=== PATIENT | male | born 1940 | race Caucasian/White ===

== ENCOUNTER 2017-07-24 18:23 | Emergency (ER) | payer OTHER, MEDICARE ==
[~2017-07-24] VITALS: Ht 172.7 cm; Wt 100.9 kg
[~2017-07-24 18:23] MED LIST: ADV250/50; CLORTHALIDONE PO; COMINH INH; CORE25 PO; FENOFIBRATE130 MG PO; GLU850 PO; MEV20 PO; NOR10 PO; NOVOLIN 70/30; PRI20 PO; ZES5 PO
[2017-07-24] MEDS ORDERED: ADV250/50 (18:42)
[2017-07-24] MEDS ORDERED: ASPIR 8181 MG PO (18:43)
[2017-07-24] MEDS ORDERED: CALCIUM D (18:44)
[2017-07-24] MEDS ORDERED: GLUCOSAMINE & C1 CA3 PO (18:45)
[2017-07-24] MEDS ORDERED: ZESTRIL5 MG PO (18:46)
[2017-07-24] MEDS ORDERED: LEVEMIR FLEX100 U/M1 (18:46)
[2017-07-24] MEDS ORDERED: NOVOFINE 321 EACH (18:48)
[2017-07-24] MEDS ORDERED: NOVOLIN 70/3010 ML (18:49)
[2017-07-24] MEDS ORDERED: GOOD SENSE OMEP20 MG PO (18:49)
[2017-07-24] MEDS ORDERED: PREDNISONE1 MG PO (18:50)
[2017-07-24] MEDS ORDERED: PROAIR RES117 MCG/Ac IH (18:51)
[2017-07-24 19:03] LABS: BASOPHIL % 0.3 % (0-2); PLATELET COUNT 171 x10^3mcL (130-400); RED CELL DISTRIBUTION WIDTH 13.8 % (11.5-14.5)
[2017-07-24 19:08] LABS: CALCIUM 9.3 mg/dL (8.5-10.1); CARBON DIOXIDE 27.5 mmol/L (21-32); CHLORIDE SERUM 101 mmol/L (98-107); CREATININE SERUM 1.5 mg/dL (0.7-1.3); GLUCOSE SERUM 221 mg/dL (74-106); POTASSIUM SERUM 3.9 mmol/L (3.5-5.1); SODIUM SERUM 138 mmol/L (136-145)
[2017-07-24 19:13] LABS: ALBUMIN 3.6 g/dL (3.4-5.0); ALKALINE PHOSPHATASE 57 U/L (46-116); ALT/SGPT 36 U/L (16-63); AST/SGOT 22 U/L (15-37); BILIRUBIN TOTAL 0.62 mg/dL (0.20-1.00)
[2017-07-24 19:22] LABS: CK-MB 2.6 ng/mL (0-3.6)
[2017-07-24 20:03] LABS: microscopic required? NO
[2017-07-24 20:10] LABS: urine erythrocyte NEGATIVE (NEGATIVE)
[2017-07-24 20:25] VITALS: BP 124/76
== END 2017-07-24 20:22 | disposition home or self-care (01) ==
LOC: ED 18:23
PROVIDERS: Emergency Medicine
DX: J44.1 Chronic obstructive pulmonary disease with (acute) exacerbation (principal); I10 Essential (primary) hypertension; E11.9 Type 2 diabetes mellitus without complications; Z79.899 Other long term (current) drug therapy
CPT/HCPCS: 36415; 83880; J7512; J7613; J7644; Q0092

== ENCOUNTER 2018-01-30 19:01 | Inpatient (IN) | payer OTHER, MEDICARE ==
[~2018-01-30] VITALS: Ht 170.2 cm; Wt 100.4 kg
[~2018-01-30 19:01] MED LIST changes: +ASPIR 8181 MG PO; +CALCIUM D; +GLUCOSAMINE & C1 CA3 PO; +GOOD SENSE OMEP20 MG PO; +LEVEMIR FLEX100 U/M1; +NOVOFINE 321 EACH; +NOVOLIN 70/3010 ML; +PREDNISONE1 MG PO; +PROAIR RES117 MCG/Ac IH; +ZESTRIL5 MG PO
[2018-01-30 19:26] VITALS: Ht 170.2 cm; Wt 100.4 kg
[2018-01-30 20:06] LABS: BASOPHIL % 0.3 % (0-2); PLATELET COUNT 164 x10^3mcL (130-400); RED CELL DISTRIBUTION WIDTH 13.1 % (11.5-14.5)
[2018-01-30 20:33] LABS: ALBUMIN 3.9 g/dL (3.4-5.0); ALKALINE PHOSPHATASE 40 U/L (46-116); ALT/SGPT 34 U/L (16-63); BILIRUBIN TOTAL 0.79 mg/dL (0.20-1.00); CALCIUM 9.6 mg/dL (8.5-10.1); CARBON DIOXIDE 28.7 mmol/L (21-32); CHLORIDE SERUM 97 mmol/L (98-107); CREATININE SERUM 1.4 mg/dL (0.7-1.3); POTASSIUM SERUM 3.3 mmol/L (3.5-5.1); SODIUM SERUM 138 mmol/L (136-145); TOTAL PROTEIN, SERUM 7.5 g/dL (6.4-8.2)
[2018-01-30 20:46] LABS: AST/SGOT 19 U/L (15-37); GLUCOSE SERUM 145 mg/dL (74-106)
[2018-01-30 22:51] LABS: CHOLESTEROL/HDL RATIO 3.1; MAGNESIUM 1.7 mg/dL (1.8-2.4)
[2018-01-30 23:00] LABS: T3 TOTAL 0.99 ng/mL
[2018-01-30 23:01] LABS: FREE T4 1.07 ng/dL (0.76-1.46); FREE THYROXINE INDEX 2.8 ug/dL (1.4-4.5); T4(THYROXINE) 8.1 ug/dL (4.7-13.3)
[2018-01-30 23:33] VITALS: BP 140/93
[2018-01-31 01:17] VITALS: BP 122/60
[2018-01-31 06:43] VITALS: BP 110/60
[2018-01-31 07:35] LABS: BASOPHIL % 0.2 % (0-2); PLATELET COUNT 152 x10^3mcL (130-400); RED CELL DISTRIBUTION WIDTH 13.3 % (11.5-14.5)
[2018-01-31 07:52] LABS: CALCIUM 9.1 mg/dL (8.5-10.1); CARBON DIOXIDE 25.2 mmol/L (21-32); CHLORIDE SERUM 96 mmol/L (98-107); CREATININE SERUM 1.5 mg/dL (0.7-1.3); GLUCOSE SERUM 303 mg/dL (74-106); MAGNESIUM 2.4 mg/dL (1.8-2.4); PHOSPHOROUS 4.8 mg/dL (2.5-4.9); POTASSIUM SERUM 3.7 mmol/L (3.5-5.1); SODIUM SERUM 133 mmol/L (136-145)
[2018-01-31 08:58] VITALS: BP 119/61
[2018-01-31 12:29] LABS: microscopic required? NO
[2018-01-31 13:02] VITALS: BP 115/66
[2018-01-31 13:13] LABS: urine erythrocyte NEGATIVE (NEGATIVE)
[2018-01-31 16:41] VITALS: BP 116/64
[2018-01-31 21:08] VITALS: BP 114/65
[2018-02-01 05:07] VITALS: BP 102/52
[2018-02-01 06:16] LABS: BASOPHIL % 0.1 % (0-2); PLATELET COUNT 152 x10^3mcL (130-400); RED CELL DISTRIBUTION WIDTH 12.9 % (11.5-14.5)
[2018-02-01 06:37] LABS: CALCIUM 8.6 mg/dL (8.5-10.1); CARBON DIOXIDE 26.5 mmol/L (21-32); CHLORIDE SERUM 100 mmol/L (98-107); CREATININE SERUM 1.3 mg/dL (0.7-1.3); GLUCOSE SERUM 176 mg/dL (74-106); POTASSIUM SERUM 3.6 mmol/L (3.5-5.1); SODIUM SERUM 136 mmol/L (136-145)
[2018-02-01 09:00] VITALS: BP 132/63
[2018-02-01] MEDS ORDERED: LEVAQUIN750 MG PO (12:11)
[2018-02-01] MEDS ORDERED: LAC PO (12:12)
[2018-02-01] MEDS ORDERED: MEDDP PO (12:13)
[2018-02-01] MEDS ORDERED: LEVEMIR100 U/M1 SC (12:21)
[2018-02-01 13:34] VITALS: BP 134/67
[2018-02-01 14:49] VITALS: BP 134/67
== END 2018-02-01 16:10 | disposition home or self-care (01) | DRG 682 ==
LOC: ED 19:01 → DU 22:03
PROVIDERS: Emergency Medicine; Family Medicine; Nutritionist Nutrition, Education
DX: N17.0 Acute kidney failure with tubular necrosis (principal); J96.00 Acute respiratory failure, unspecified whether with hypoxia or hypercapnia; J44.1 Chronic obstructive pulmonary disease with (acute) exacerbation; E87.1 Hypo-osmolality and hyponatremia; I42.9 Cardiomyopathy, unspecified; I10 Essential (primary) hypertension; I48.91 Unspecified atrial fibrillation; E11.65 Type 2 diabetes mellitus with hyperglycemia; E87.6 Hypokalemia; E83.42 Hypomagnesemia; E78.00 Pure hypercholesterolemia, unspecified; E87.8 Other disorders of electrolyte and fluid balance, not elsewhere classified; Z87.891 Personal history of nicotine dependence; G47.33 Obstructive sleep apnea (adult) (pediatric)
CPT/HCPCS: 36600; 83880; 84439; 87804; 94150; J1644; J1815; J1956; J2920; J2930; J3475; J7030; J7506; J7613; J7620; J7633; J7644; Q0092